=== PATIENT | female | born 1990 | race African-American/Black ===

== ENCOUNTER 2020-01-12 15:53 | Emergency (ER) | payer OTHER ==
[~2020-01-12] VITALS: Ht 167.6 cm; Wt 68.0 kg
[2020-01-12 16:11] LABS: URINE BILIRUBIN NEGATIVE (Negative); URINE BLOOD 3+ (Negative); URINE CLARITY CLEAR; URINE COLOR YELLOW; URINE GLUCOSE-RANDOM* NEGATIVE (Negative); URINE KETONES TRACE (Negative); URINE LEUKOCYTES-REFLEX NEGATIVE (Negative); URINE NITRITE-REFLEX NEGATIVE (Negative); URINE PROTEIN (DIPSTICK) 1+ (Negative); URINE SPECIFIC GRAVITY >= 1.030 (1.005-1.035); URINE UROBILINOGEN 0.2 E.U./dl (0.2-1.0)
[2020-01-12] MEDS ORDERED: VENTOLIN HFA INH8 GM INH (16:26)
[2020-01-12 16:28] LABS: SQUAMOUS 0-3 Few /LPF (0-3); URINE WBC-REFLEX 0-5 Rare /HPF (0-5)
[2020-01-12 16:37] LABS: BACTERIA-REFLEX 1-9 Few /HPF (None Seen); CASTS None Seen /LPF (None Seen)
[2020-01-12 16:38] LABS: CRYSTALS None Seen /LPF (None Seen)
[2020-01-12] MEDS ORDERED: PREDNISONE 20 M20 MG PO (17:42)
[2020-01-12] MEDS ORDERED: TOBRADEX EYE DRO5 ML OPHTHALMIC (17:42)
[2020-01-12] MEDS ORDERED: FLAGYL500 M1 PO (17:42)
[2020-01-12] MEDS ORDERED: ZYRTEC10 M2 PO (17:42)
[2020-01-12 18:32] VITALS: BP 147/100
== END 2020-01-12 18:15 | disposition home or self-care (01) ==
LOC: ER 15:53
PROVIDERS: Nurse Practitioner Family
DX: H10.12 Acute atopic conjunctivitis, left eye (principal); A59.8 Trichomoniasis of other sites; F17.210 Nicotine dependence, cigarettes, uncomplicated